=== PATIENT | male | born 1965 | race Caucasian/White ===

== ENCOUNTER 2018-03-18 19:22 | Emergency (ER) | payer OTHER ==
[~2018-03-18] VITALS: Ht 172.7 cm; Wt 85.3 kg
[~2018-03-18 19:22] MED LIST: IBUPROFEN 800800 M1 PO; IBUPROFEN 800800 MG PO; MOBIC15 MG PO; NICOTINE PATCH1 EAC1 TD; NORCO 5-325 TA1 EACH PO; PERCOCET 5-3251 EACH PO; PERCOCET PO; PROPRANOLOL 1010 MG PO; TRAMADOL 50 MG50 MG PO; ZANAFLEX4 MG PO
[2018-03-18] MEDS ORDERED: NEURONTIN 300M300 M2 (19:30)
[2018-03-18] MEDS ORDERED: ZPAK PO (19:44)
[2018-03-18] MEDS ORDERED: VENTOLIN HFA 1818 GM INH (19:44)
[2018-03-18 19:53] VITALS: BP 130/88
== END 2018-03-18 19:54 | disposition home or self-care (01) ==
LOC: M.ERS 19:22
DX: J18.9 Pneumonia, unspecified organism (principal)

== ENCOUNTER → 2019-07-14 | Outpatient (CLI) | payer OTHER ==
[~2019-07-14] MED LIST changes: +NEURONTIN 300M300 M2; +VENTOLIN HFA 1818 GM INH; +ZPAK PO
== END ==
LOC: M.RAD 14:25
DX: M47.22 Other spondylosis with radiculopathy, cervical region (principal)